=== PATIENT | male | born 1995 | race Caucasian/White ===

== ENCOUNTER → 2017-08-03 | Outpatient (CLI) | payer OTHER, BC | LOC: FIMAGING 14:59 | DX: M25.511 Pain in right shoulder (principal) ==

== ENCOUNTER → 2017-09-20 | Outpatient (CLI) | payer BC, OTHER | LOC: FIMAGING 11:34 | DX: M75.111 Incomplete rotator cuff tear or rupture of right shoulder, not specified as traumatic (principal); M75.51 Bursitis of right shoulder; M75.41 Impingement syndrome of right shoulder ==